=== PATIENT | male | born 1955 | race Caucasian/White ===

== ENCOUNTER → 2024-09-28 07:44 | Outpatient (BNVA) | payer OTHER, SELFPAY | PROVIDERS: Referring Provider Physician Assistant; Visit Provider Psychiatry & Neurology Neurology | DX: G51.32 Clonic hemifacial spasm, left (principal); G24.5 Blepharospasm | CPT/HCPCS: 99203 ==

== ENCOUNTER 2024-10-17 12:12 | Outpatient (CLI) | payer OTHER, SELFPAY ==
--- NOTE | 2024-10-17 13:00 | MR_ITS ---
WS: [id number] MRI HEAD WITH CONTRAST TECHNIQUE: Sagittal T1, T2 axial, T2 axial FLAIR, axial susceptibility weighted imaging, axial diffusion weighted images, and coronal T2 images were obtained. Pre and post-T1 axial and post T1 coronal images. ADC and FSPGR images. 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 FINDINGS: No evidence restricted diffusion to suggest acute ischemia. Ventricular system and basilar cisterns are patent. Mild small vessel changes. Mild parenchymal volume loss. Incidental cavum septum pellucidum and vergae. Tiny chronic lacunar infarct LEFT cerebellum. Normal vascular flow voids at the skull base. No extra- axial fluid collections. No evidence of mass or mass effect. Paranasal sinuses are well aerated. Mastoid air cells are well aerated. No hemosiderin on the susceptibility weighted images. Normal optic chiasm and pituitary infundibulum. Mild symmetric atrophy temporal lobes and hippocampal formations. No abnormal gadolinium enhancement. MR/MR head wo/w con [id number] IMPRESSION: 1. No evidence of restricted diffusion to suggest acute ischemia. 2. Mild small vessel changes. Mild parenchymal volume loss. 3. Tiny chronic lacunar infarct LEFT cerebellum. 4. No hemosiderin on the susceptibly weighted images. 5. No abnormal gadolinium enhancement.
[2024-10-17] MEDS: gadobenate dimeglumine 20 mL vial 18 ML IV (13:40)
--- NOTE | 2024-10-17 13:45 | MR_ITS ---
WS: [id number] MRA CAROTID WITHOUT AND WITH GADOLINIUM ENHANCEMENT TECHNIQUE: Axial 2-D TOF and gadolinium bolus images obtained with axial images and axial, sagittal, and coronal 2-D reformatted images. 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 FINDINGS: RIGHT: RIGHT common carotid artery is patent. No significant RIGHT ICA stenosis. RIGHT ICA is patent to the skull base. LEFT: LEFT common carotid artery is patent. No significant LEFT ICA stenosis. LEFT ICA is patent to the skull base. LEFT dominant vertebral artery. Smaller but patent RIGHT vertebral artery. Vertebral arteries are patent to the basilar junction. Proximal subclavian arteries are patent. MR/MR angio neck w con* [id number] IMPRESSION: 1. No significant cervical ICA stenosis. 2. LEFT dominant vertebral artery. Smaller but patent RIGHT vertebral artery.
--- NOTE | 2024-10-17 14:30 | MR_ITS ---
WS: [id number] MRA HEAD TECHNIQUE: Axial 3-D TOF images obtained with axial images and axial, sagittal, and coronal 2-D reformatted images. 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 FINDINGS: Mild intracranial atheromatous disease. Distal vertebral arteries are patent. Dolichoectatic basilar artery. Normal vascularity to the [employer] territory bilaterally. Both ICAs are patent at the skull base. Patent anterior communicating artery. Normal vascularity to the SUSHIL and MCA territories bilaterally. No evidence of proximal flow-limiting stenosis. MR/MR angio head wo con [id number] IMPRESSION: 1. Patent dolichoectatic basilar artery. 2. No evidence of proximal flow-limiting intracranial stenosis. 3. Mild intracranial atheromatous disease.
== END 2024-10-17 12:13 | disposition home or self-care (01) ==
PROVIDERS: PCP Physician Assistant; Visit Provider Psychiatry & Neurology Neurology
DX: G51.39 Clonic hemifacial spasm, unspecified (principal); I67.2 Cerebral atherosclerosis; R93.0 Abnormal findings on diagnostic imaging of skull and head, not elsewhere classified; G31.89 Other specified degenerative diseases of nervous system
CPT/HCPCS: 70544; 70548; 70553

== ENCOUNTER → 2024-11-14 07:48 | Outpatient (BNVA) | payer OTHER, SELFPAY | PROVIDERS: PCP Physician Assistant; Referring Provider Psychiatry & Neurology Neurology; Visit Provider Specialist | DX: G51.32 Clonic hemifacial spasm, left (principal); G24.5 Blepharospasm | CPT/HCPCS: 99214 ==

== ENCOUNTER → 2024-11-24 13:15 | Outpatient (BNVA) | payer OTHER, SELFPAY | PROVIDERS: PCP Physician Assistant; Referring Provider Psychiatry & Neurology Neurology; Visit Provider Specialist | DX: G51.32 Clonic hemifacial spasm, left (principal) | CPT/HCPCS: 64612; J0585; J9999 ==

== ENCOUNTER → 2024-12-26 08:24 | Outpatient (BNVA) | payer OTHER, SELFPAY | PROVIDERS: PCP Physician Assistant; Referring Provider Physician Assistant; Visit Provider Internal Medicine Rheumatology | DX: L40.50 Arthropathic psoriasis, unspecified (principal); M25.50 Pain in unspecified joint; L40.0 Psoriasis vulgaris; Z79.899 Other long term (current) drug therapy; Z71.85 Encounter for immunization safety counseling | CPT/HCPCS: 36415; 80076; 82306; 82550; 82565; 83520; 85025; 85651; 86140; 86431; 86480; 86704; 86803; 87340; 99204 ==

== ENCOUNTER → 2025-03-08 13:28 | Outpatient (BNVA) | payer OTHER, SELFPAY | PROVIDERS: PCP Physician Assistant; Referring Provider Psychiatry & Neurology Neurology; Visit Provider Specialist | DX: G51.32 Clonic hemifacial spasm, left (principal); G24.5 Blepharospasm | CPT/HCPCS: 64612; J0585; J9999 ==

== ENCOUNTER → 2025-05-21 11:00 | Outpatient (BNVA) | payer OTHER, SELFPAY | PROVIDERS: PCP Physician Assistant; Visit Provider Internal Medicine Rheumatology | DX: L40.50 Arthropathic psoriasis, unspecified (principal); L40.0 Psoriasis vulgaris; Z79.899 Other long term (current) drug therapy; Z71.85 Encounter for immunization safety counseling | CPT/HCPCS: 99214 ==

== ENCOUNTER → 2025-06-07 12:11 | Outpatient (BNVA) | payer OTHER, SELFPAY | PROVIDERS: PCP Physician Assistant; Referring Provider Psychiatry & Neurology Neurology; Visit Provider Specialist | DX: G51.32 Clonic hemifacial spasm, left (principal); G24.5 Blepharospasm | CPT/HCPCS: 64612; J0585; J9999 ==

== ENCOUNTER 2025-06-07 13:07 | Outpatient (CLI) | payer OTHER, SELFPAY ==
[2025-06-07 13:39] LABS: Hematocrit 46.5 % (37-53); Hemoglobin 15.80 g/dL (11.27-16.99); Mean Corpuscular HGB Conc 34.0 g/dL (30-55); Mean Corpuscular Hemoglobin 32.5 pg (27-33); Mean Corpuscular Volume 95.7 fl (82-101); Nucleated Red Blood Cells % 0 %; Platelet Count 191 10^3/cmm (157-399); Red Blood Count 4.86 10^6/uL (3.85-5.65); White Blood Count 6.43 10^3/uL (3.29-11.43)
[2025-06-07 14:02] LABS: Alanine Aminotransferase 9 U/L (0-41); Albumin Level 4.1 g/dL (3.5-5.2); Alkaline Phosphatase 62 U/L (40-130); Aspartate Amino Transferase 15 U/L (0-40); Globulin 2.9 g/dL (1.3-4.6); Total Protein 7.0 g/dL (6.6-8.7)
== END 2025-06-07 13:08 | disposition home or self-care (01) ==
LOC: LAB 13:08
PROVIDERS: PCP Physician Assistant; Visit Provider Internal Medicine Rheumatology
DX: Z79.899 Other long term (current) drug therapy (principal); L40.0 Psoriasis vulgaris
CPT/HCPCS: 64612; 80076; 82565; 85025; 85651; 86140; J0585; J9999